=== PATIENT | male | born 1990 | race Two or more races ===

== ENCOUNTER 2017-03-27 01:00 | Emergency (ER) | payer MEDICAID ==
[~2017-03-27] VITALS: Ht 165.1 cm; Wt 71.7 kg
== END 2017-03-27 03:09 | disposition home or self-care (01) ==
LOC: CED 01:00
DX: K08.89 Other specified disorders of teeth and supporting structures (principal); F17.210 Nicotine dependence, cigarettes, uncomplicated; Z88.5 Allergy status to narcotic agent
CPT/HCPCS: 64400; 99282

== ENCOUNTER 2017-03-29 03:29 | Emergency (ER) | payer MEDICAID ==
[~2017-03-29] VITALS: Ht 165.1 cm; Wt 68.9 kg
== END 2017-03-29 04:26 | disposition home or self-care (01) ==
LOC: CED 03:29
DX: K08.89 Other specified disorders of teeth and supporting structures (principal); F17.210 Nicotine dependence, cigarettes, uncomplicated; Z79.899 Other long term (current) drug therapy
CPT/HCPCS: 99282